=== PATIENT | female | born 1990 | race Caucasian/White ===

== ENCOUNTER 2021-06-04 20:15 | Emergency (ER) | payer OTHER ==
[~2021-06-04] VITALS: Ht 162.6 cm; Wt 83.6 kg
[2021-06-04 20:21] VITALS: BP 140/77
--- NOTE | 2021-06-04 20:51 | NUR ---
PT AMBULATED TO BED 11
--- NOTE | 2021-06-04 20:55 | NUR ---
PT PRESENTS TO ED WITH C/O MALAISE. PT STATES SHE FEELS PALPITATIONS AND SHAKINESS. PATIENT REPORTS HAVING HER ANTIDEPRESSANT MED CHANGED RECENTLY AND HAS NOT FELT WELL SINCE. PT hasnt had antidepression medication X3 DAYS hx: alopecia, anxiety rx:prozac allergy:pcn
--- NOTE | 2021-06-04 21:10 | NUR ---
DR NARANJO AT BEDSIDE EVALUATING PT
[2021-06-04] MEDS ORDERED: NACL 0.9% 1,000 ML IV ONE (21:25)
[2021-06-04 21:39] LABS: BASOPHILS # (AUTO) 0.1 K/uL (0.00-0.22); BASOPHILS % (AUTO) 0.6 % (0.0-2.0); EOSINOPHILS # (AUTO) 0.1 K/uL (0-0.4); EOSINOPHILS % (AUTO) 0.6 % (0.0-4.0); HEMATOCRIT 39.2 % (36-48); HEMOGLOBIN 13.2 g/dL (12.0-16.0); LYMPHOCYTES # (AUTO) 2.2 K/uL (2.5-16.5); LYMPHOCYTES % (AUTO) 22.9 % (20.5-51.1); MEAN CORPUSCULAR HEMOGLOBIN 29 pg (27-31); MEAN CORPUSCULAR HGB CONC 34 g/dL (33-37); MEAN CORPUSCULAR VOLUME 85.9 fL (80-94); MONOCYTES # (AUTO) 0.6 K/uL (0.8-1.0); MONOCYTES % (AUTO) 5.9 % (1.7-9.3); NEUTROPHILS # (AUTO) 6.8 K/uL (1.8-7.7); PLATELET COUNT (AUTO) 227 K/uL (140-450); RED BLOOD CELL COUNT(AUTO) 4.56 MIL/uL (4.20-5.40); RED CELL DISTRIBUTION WIDTH 13.5 % (11.6-13.7); WHITE BLOOD COUNT (AUTO) 9.6 K/uL (4.8-10.8)
[2021-06-04 22:02] LABS: ALBUMIN 4.3 g/dL (3.4-5.0); ANION GAP 16.8 (8-16); CARBON DIOXIDE 24.1 mmol/L (21-32); CREATININE 0.7 mg/dL (0.6-1.3); POTASSIUM 3.9 mmol/L (3.5-5.1); THYROID STIMULATING HORMONE 1.11 uIU/mL (0.34-3.74); TOTAL BILIRUBIN 0.5 mg/dL (0.0-1.0)
[2021-06-04 22:48] VITALS: BP 134/74
--- NOTE | 2021-06-04 22:48 | NUR ---
Patient discharged with v/s stable. Written and verbal after care instructions given and explained. Patient verbalized understanding. Ambulatory with steady gait. All questions addressed prior to discharge. Advised to follow up with PMD.
== END 2021-06-04 22:48 | disposition home or self-care (01) ==
LOC: MED 20:15
DX: F41.9 Anxiety disorder, unspecified (principal); R00.2 Palpitations; R11.2 Nausea with vomiting, unspecified; G47.00 Insomnia, unspecified; Z88.0 Allergy status to penicillin
CPT/HCPCS: 36415; 80053; 84443; 85025; 93005; 96360; 99284